=== PATIENT | male | born 1995 | race African-American/Black ===

== ENCOUNTER 2017-09-15 06:50 | Emergency (ER) | payer MEDICAID ==
[~2017-09-15] VITALS: Ht 165.1 cm; Wt 72.6 kg
[2017-09-15] MEDS ORDERED: NKM (07:03)
[2017-09-15] MEDS ORDERED: Albuterol/Ipratropium 3ml neb HHN ONE (07:15)
[2017-09-15 07:35] LABS: EOSINOPHILS % (AUTO) 2.7 % (0.0-3.0); HEMATOCRIT 42.8 % (42.0-52.0); HEMOGLOBIN 15.1 G/DL (14.2-18.0); LYMPHOCYTES % (AUTO) 21.6 % (20.0-45.0); MEAN CORPUSCULAR VOLUME 94 FL (80-99); MONOCYTES % (AUTO) 6.9 % (1.0-10.0); NEUTROPHILS % (AUTO) 67.8 % (45.0-75.0); PLATELET COUNT 336 K/UL (150-450); RED BLOOD COUNT 4.54 M/UL (4.70-6.10); RED CELL DISTRIBUTION WIDTH 11.3 % (11.6-14.8); WHITE BLOOD COUNT 11.2 K/UL (4.8-10.8)
[2017-09-15 07:49] LABS: ANION GAP 10 mmol/L (5-15); BLOOD UREA NITROGEN 13 mg/dL (7-18); CALCIUM 9.1 MG/DL (8.5-10.1); CARBON DIOXIDE 28 MMOL/L (21-32); CHLORIDE 102 MMOL/L (98-107); CREATININE 1.1 MG/DL (0.55-1.30); POTASSIUM 3.1 MMOL/L (3.5-5.1); SODIUM 140 MMOL/L (136-145)
[2017-09-15 07:53] LABS: ALANINE AMINOTRANSFERASE 25 U/L (12-78); ALBUMIN 4.1 G/DL (3.4-5.0); ALKALINE PHOSPHATASE 74 U/L (46-116); ASPARTATE AMINO TRANSFERASE 14 U/L (15-37); BILIRUBIN,TOTAL 0.3 MG/DL (0.2-1.0)
[2017-09-15] MEDS ORDERED: ALBUTEROL SULF8.5 GM INH (08:16)
[2017-09-15] MEDS ORDERED: PREDNISONE20 MG ORAL (08:16)
--- NOTE | 2017-09-15 08:28 | Emergency Room Report ---
History of Present Illness General Chief Complaint: Chest Pain Source: Patient Present Illness HPI Patient is a 22-year-old male who presents after increased cough and nasal congestion. Patient reports having associated chest pain. Patient reports having prior history of asthma. He reports having some tightness to his chest. He states that he is a smoker. He smokes proximal 4 cigarettes per day. He denies any drug use. He denies any leg pain or swelling. He denies any fever. He reports taking [id number]-exkeldi cough medications. Allergies: Coded Allergies: No Known Allergies (Unverified , 09/15/17) Patient History Reviewed Nursing Documentation: PMH: Agreed; PSxH: Agreed Nursing Documentation-PMH Hx Asthma: Yes Review of Systems All Other Systems: negative except mentioned in HPI Physical Exam Vital Signs Date Time Temp Pulse Resp B/P (MAP) Pulse Ox O2 Delivery O2 Flow Rate FiO2 09/15/17 07:00 97.7 84 18 153/95 98 Room Air 97.7 09/15/17 07:52 21 Sp02 EP Interpretation: reviewed, normal General Appearance: normal inspection, well appearing, no apparent distress, alert, GCS 15, non-toxic Head: atraumatic ENT: normal ENT inspection, hearing grossly normal, normal voice Neck: normal inspection, full range of motion, supple, no bony tend Respiratory: normal inspection, lungs clear, normal breath sounds, no respiratory distress, no retraction, no wheezing Cardiovascular #1: regular rate, rhythm, no edema Gastrointestinal: normal inspection, normal bowel sounds, non tender, soft, no guarding, no hernia Genitourinary: no CVA tenderness Musculoskeletal: normal inspection, back normal, normal range of motion Neurologic: normal inspection, alert, responsive, speech normal Psychiatric: normal inspection, judgement/insight normal, mood/affect normal Skin: normal inspection, normal color, no rash Medical Decision Making Diagnostic Impression: Primary Impression: Asthma ER Course Patient resented for chest pain. Differential diagnosis included but was not limited to acute coronary syndrome, pulmonary embolism, pneumonia, aortic dissection, shingles, pneumothorax, aortic dissection, esophageal rupture, pericarditis. Because of complexity of patient's case laboratory testing and imaging studies were ordered. The troponin was noted to be negative. Laboratory studies are unremarkable. Chest x-ray one view indication shortness of breath interpreted by me showed normal cardiac size with hyperinflation without evident infiltrate. The patient was given prescription for oral steroids and albuterol. The patient is advised to follow up with primary care doctor in 1-2 days. Patient is advised to return if any worsening condition or if any changes in status that are concerning. This report is dictated with [employer] hand sewer software which may occasionally lead to discrepancies related to use of this software. Labs Test 09/15/17 07:20 White Blood Count 11.2 K/UL (4.8-10.8) Red Blood Count 4.54 M/UL (4.70-6.10) Hemoglobin 15.1 G/DL (14.2-18.0) Hematocrit 42.8 % (42.0-52.0) Mean Corpuscular Volume 94 FL (80-99) Mean Corpuscular Hemoglobin 33.2 PG (27.0-31.0) Mean Corpuscular Hemoglobin Concent 35.2 G/DL (32.0-36.0) Red Cell Distribution Width 11.3 % (11.6-14.8) Platelet Count 336 K/UL (150-450) Mean Platelet Volume 6.3 FL (6.5-10.1) Neutrophils (%) (Auto) 67.8 % (45.0-75.0) Lymphocytes (%) (Auto) 21.6 % (20.0-45.0) Monocytes (%) (Auto) 6.9 % (1.0-10.0) Eosinophils (%) (Auto) 2.7 % (0.0-3.0) Basophils (%) (Auto) 1.0 % (0.0-2.0) Sodium Level 140 MMOL/L (136-145) Potassium Level 3.1 MMOL/L (3.5-5.1) Chloride Level 102 MMOL/L (98-107) Carbon Dioxide Level 28 MMOL/L (21-32) Anion Gap 10 mmol/L (5-15) Blood Urea Nitrogen 13 mg/dL (7-18) Creatinine 1.1 MG/DL (0.55-1.30) Estimat Glomerular Filtration Rate > 60 mL/min (>60) Glucose Level 100 MG/DL (74-106) Calcium Level 9.1 MG/DL (8.5-10.1) Total Bilirubin 0.3 MG/DL (0.2-1.0) Aspartate Amino Transf (AST/SGOT) 14 U/L (15-37) Alanine Aminotransferase (ALT/SGPT) 25 U/L (12-78) Alkaline Phosphatase 74 U/L (46-116) Troponin I 0.000 ng/mL (0.000-0.056) Total Protein 8.3 G/DL (6.4-8.2) Albumin 4.1 G/DL (3.4-5.0) Globulin 4.2 g/dL Albumin/Globulin Ratio 1.0 (1.0-2.7) Lipase 129 U/L (73-393) EKG Diagnostic Results Rate: normal Rhythm: NSR ST Segments: no acute changes Rhythm Strip Diag. Results EP Interpretation: yes Rhythm: NSR - 80, no PVC's, no ectopy Last Vital Signs Date Time Temp Pulse Resp B/P (MAP) Pulse Ox O2 Delivery O2 Flow Rate FiO2 09/15/17 08:02 71 20 99 Room Air 21 09/15/17 07:00 97.7 153/95 97.7 Status: improved Disposition: HOME, SELF-CARE Condition: Stable Scripts Prednisone* (PREDNISONE*) 20 Mg Tablet 40 MG ORAL DAILY, #10 TAB Prov: Alber Erazo MD 09/15/17 Albuterol Sulfate* (ALBUTEROL SULFATE MDI*) 8.5 Gm Hfa.aer.ad 2 PUFF INH Q6H, #1 EA 0 Refills Prov: Alber Erazo MD 09/15/17 Patient Instructions: Asthma, Adult, Nonspecific Chest Pain Alber Erazo MD September 15, 2017 08:28
[2017-09-15 08:44] VITALS: BP 121/67
[2017-09-15 08:45] VITALS: BP 121/67
--- NOTE | 2017-09-15 08:59 | Diagnostic Imaging Report ---
Indication: Reason For Exam: SOB Technique: One view of the chest Comparison: none Findings: Lungs and pleural spaces are clear. Heart size is normal Impression: No acute process
--- NOTE | 2017-09-16 16:57 | Cardiology Report ---
APPROVED REPORT EKG Measurement Heart [id number] Sinus rhythm with marked sinus arrhythmia Nonspecific ST abnormality Abnormal ECG
== END 2017-09-15 08:47 | disposition home or self-care (01) ==
LOC: EMR 07:23
DX: J45.909 Unspecified asthma, uncomplicated (principal); R07.9 Chest pain, unspecified; F17.210 Nicotine dependence, cigarettes, uncomplicated
CPT/HCPCS: 36415; 71045; 80053; 83690; 84484; 85025; 93005; 94640; 94664; 96374; 99284; S0028; J7620; J8499

== ENCOUNTER 2018-07-25 23:59 | Emergency (ER) | payer MEDICAID ==
[~2018-07-25] VITALS: Ht 162.6 cm; Wt 70.3 kg
[~2018-07-25 23:59] MED LIST: ALBUTEROL SULF8.5 GM INH; NKM; PREDNISONE20 MG ORAL
[2018-07-26 00:21] VITALS: BP 111/63
--- NOTE | 2018-07-26 00:32 | NUR ---
ED Nurse Note: Patient cut right hand with can abouit 1 1/2 hour ago.
[2018-07-26] MEDS ORDERED: Tetanus/Diptheria/Pertussis Vaccine 0.5ml Syr IM ONE (00:45)
--- NOTE | 2018-07-26 01:20 | NUR ---
ED Nurse Note: Patient tolerated procedure well, mother at bedside. patient resting calmly.
[2018-07-26] MEDS ORDERED: Lidocaine 1% Plain 30 ml INJ ONE (01:30)
[2018-07-26] MEDS ORDERED: Tylenol #3 tab (300mg/30mg) ORAL ONE (01:45)
[2018-07-26] MEDS ORDERED: Tetanus-Diphtheria Toxoid 0.5ml IM ONE (02:15)
[2018-07-26] MEDS ORDERED: Bacitracin Oint UD TOPIC ONE (02:15)
[2018-07-26] MEDS ORDERED: BACITRACIN15 GM TOPIC (02:23)
[2018-07-26] MEDS ORDERED: TYLENOL EXTRA500 MG ORAL (02:23)
[2018-07-26 02:25] VITALS: BP 111/63
--- NOTE | 2018-07-26 02:36 | NUR ---
ED Nurse Note: Patient cleared for discharge, A&Ox4, ambulatory with steady gait, no s/s of acute distress, no reports of patient. Patient verbalized understanding of discharge instructions, ID band removed, patient departed with all belongings, accompanied by his mother.
--- NOTE | 2018-07-26 05:02 | Emergency Room Report ---
History of Present Illness General Chief Complaint: Laceration Source: Patient, Family Member Present Illness HPI 23-year-old male presents ED for evaluation. Present with lacerations to his left hand. States that he accidentally cut his third fourth and fifth finger with metal can tonight. Tetanus unknown. Pain is sharp, 8 out of 10, nonradiating. Denies any other injuries. No other aggravating relieving factors. Denies any other associated symptoms Allergies: Coded Allergies: No Known Allergies (Unverified , 09/15/17) Patient History Past Medical History: none Past Surgical History: none Pertinent Family History: none Social History: Denies: smoking, alcohol use, drug use Immunizations: UTD Reviewed Nursing Documentation: PMH: Agreed; PSxH: Agreed Nursing Documentation-PMH Hx Asthma: Yes Review of Systems All Other Systems: negative except mentioned in HPI Physical Exam Vital Signs Date Time Temp Pulse Resp B/P (MAP) Pulse Ox O2 Delivery O2 Flow Rate FiO2 07/26/18 00:21 97.7 70 16 111/63 95 Room Air Sp02 EP Interpretation: reviewed, normal General Appearance: no apparent distress, alert, GCS 15, non-toxic Head: normocephalic Eyes: bilateral eye normal inspection, bilateral eye PERRL ENT: normal ENT inspection Neck: normal inspection Respiratory: normal inspection Cardiovascular #1: normal inspection Gastrointestinal: normal inspection Rectal: deferred Genitourinary: no CVA tenderness Musculoskeletal: back normal, gait/station normal, normal range of motion, non- tender Neurologic: alert, oriented x3, responsive, motor strength/tone normal, sensory intact, speech normal Psychiatric: judgement/insight normal, memory normal, mood/affect normal, no suicidal/homicidal ideation Skin: laceration - 1cm flap laceation to 3rd digit, 3cm flap laceration to 4th digit, 1cm superficial laceration to 5th digit Lymphatic: no adenopathy Procedures Laceration/Wound Repair Laceration/Wound Repair : Consent: Verbal Wound Location: upper extremity - L hand Wound's Depth, Shape: flap - 3rd and 4th fingers Wound Explored: clean Betadine Prep?: Yes Anesthesia: 1% Lidocaine Wound Debrided: minimal Wound Repaired With: sutures Suture Size/Type: 5:0, nylon Layer Closure?: No Sterile Dressing Applied?: Yes Splint Applied?: No Sling Applied?: No Patient Tolerated: Well Complications: None Medical Decision Making Diagnostic Impression: Primary Impression: Laceration ER Course Hospital Course 23-year-old M presents to ED s/p laceration 3rd 4th and 5th fingers Clinical course Patient placed on stretcher. After initial history and physical I ordered tetanus shot. wound irrigated. Anesthesia provided with lidocaine. Laceration repaired w/o complication. bacitracin/Dressing applied. Discussed findings with patient and mother. Wound care instructions given. We' ll discharged to home. And follow-up with us in 12-14 days for suture removal or follow-up with his PMD. Safe for discharge close outpatient follow-up Diagnosis - laceration Stable and discharged to home with prescription for tylenol, bacitracin. wound Care instructions given. Followup with PMD in 12-14 days for suture removal. Return to ED if any signs of infection develop Last Vital Signs Date Time Temp Pulse Resp B/P (MAP) Pulse Ox O2 Delivery O2 Flow Rate FiO2 07/26/18 02:25 97.7 16 111/63 95 Room Air 07/26/18 00:21 89 Status: improved Disposition: HOME, SELF-CARE Condition: Stable Scripts Bacitracin (Bacitracin) 28.4 Gm Oint...g. 1 APPLIC TOPIC THREE TIMES A DAY, #28.4 GM Prov: Austin Zelaya MD 07/26/18 Acetaminophen* (TYLENOL EXTRA STRENGTH*) 500 Mg Tablet 500 MG ORAL Q8H PRN for Prn Headache/Temp > 101, #30 TAB 0 Refills Prov: Austin Zelaya MD 07/26/18 Referrals: Minerva Guerra [facility] Patient Instructions: Laceration Care, Adult Additional Instructions: have sutures removed in 12-14 days. return to ED if any signs of infection develop Austin Zelaya MD Jul 26, 2018 05:02
== END 2018-07-26 02:36 | disposition home or self-care (01) ==
LOC: EMR 07-26 00:51
DX: S61.213A Laceration without foreign body of left middle finger without damage to nail, initial encounter (principal); S61.215A Laceration without foreign body of left ring finger without damage to nail, initial encounter; W26.8XXA Contact with other sharp object(s), not elsewhere classified, initial encounter; Y92.9 Unspecified place or not applicable; Z23 Encounter for immunization; J45.909 Unspecified asthma, uncomplicated
CPT/HCPCS: 12002; 90471; 90714; 99283; J2001; Z7502; 90715

== ENCOUNTER 2018-08-06 09:36 | Emergency (ER) | payer MEDICAID ==
[~2018-08-06] VITALS: Ht 160 cm; Wt 70.3 kg
[~2018-08-06 09:36] MED LIST changes: +BACITRACIN15 GM TOPIC; +TYLENOL EXTRA500 MG ORAL
[2018-08-06 09:50] VITALS: BP 129/86
--- NOTE | 2018-08-06 09:51 | NUR ---
ED Nurse Note: pt walked in to ED for suture removal on left 3rd and 4th digit fingers. no sign of infections noted. AAO x4. respirations even and non-labored noted. will wait for the further order.
--- NOTE | 2018-08-06 10:04 | Emergency Room Report ---
History of Present Illness General Chief Complaint: Wound Recheck/Suture Removal Source: Patient Present Illness HPI Patient 11 days post sutures after cutting fingers on sharp can top he just opened. Here for sutures out. No fevers, discharge, increased pain, redness. H/O asthma - no wheezing. Allergies: Coded Allergies: No Known Allergies (Unverified , 09/15/17) Patient History Past Medical History: see triage record Social History: Denies: smoking Social History Narrative with Mom Reviewed Nursing Documentation: PMH: Agreed; PSxH: Agreed Nursing Documentation-PMH Past Medical History: No History, Except For Hx Asthma: Yes Review of Systems Constitutional: Denies: fever Respiratory: Denies: wheezing Musculoskeletal: Reports: see HPI Skin: Reports: see HPI Neurological: Denies: numbness Physical Exam Vital Signs Date Time Temp Pulse Resp B/P (MAP) Pulse Ox O2 Delivery O2 Flow Rate FiO2 08/06/18 09:47 98.1 59 14 129/86 97 Room Air Sp02 EP Interpretation: reviewed, normal General Appearance: well appearing, no apparent distress Head: normocephalic, atraumatic Eyes: bilateral eye normal inspection, bilateral eye PERRL ENT: hearing grossly normal, normal voice, moist mucus membranes Neck: full range of motion, supple Respiratory: no respiratory distress, speaking full sentences Musculoskeletal: no calf tenderness Neurologic: alert, normal gait, grossly normal Psychiatric: mood/affect normal Skin: no rash, wd healing/no infection noted - left middle and ring fingers Medical Decision Making Diagnostic Impression: Primary Impression: Encounter for removal of sutures ER Course Post lac repair. Wound well healed. Sutures removed. Tolerated well. Patient stable for outpatient observation and treatment Last Vital Signs Date Time Temp Pulse Resp B/P (MAP) Pulse Ox O2 Delivery O2 Flow Rate FiO2 08/06/18 10:16 98.1 59 14 129/86 97 Room Air Status: improved Disposition: HOME, SELF-CARE Condition: Improved Marlon Cho MD Aug 06, 2018 10:04
[2018-08-06 10:16] VITALS: BP 129/86
--- NOTE | 2018-08-06 10:17 | NUR ---
ER DISCHARGE NOTE: Patient is cleared to be discharged per ERMD, pt is aox4, on room air, with stable vital signs. pt was given dc instructions, pt was able to verbalize understanding, pt id band removed. pt is able to ambulate with steady gait. pt took all belongings.
== END 2018-08-06 10:17 | disposition home or self-care (01) ==
LOC: EMR 10:10
DX: Z48.02 Encounter for removal of sutures (principal); J45.909 Unspecified asthma, uncomplicated
CPT/HCPCS: 99281